=== PATIENT | male | born 1940 | race Caucasian/White ===

== ENCOUNTER 2019-02-01 16:03 | Emergency (ER) | payer MEDICARE, OTHER ==
[~2019-02-01] VITALS: Ht 180.3 cm; Wt 81.6 kg
--- NOTE | 2019-02-01 16:21 | ED Trauma-Multisystem ---
General Chief Complaint: Trauma-Non Activation Stated Complaint: UNDER LEFT EYE LAC Source of Information: Patient, Family Exam Limitations: Other (memory impairment) History of Present Illness Date Seen by Provider: February 01, 2019 Time Seen by Provider: 16:16 Initial Comments Patient is a 78-year-old male involved in located injury presents with head injury, facial injury, loss of consciousness with persistent memory loss, neck pain, left shoulder pain, left arm numbness left shoulder injury chest wall injury after being struck by a cattle gate. Injury was unwitnessed. Unknown duration of loss of consciousness. Patient was found by family members down in the mud and may have been stomped on by cow. Arrives by private vehicle. Patient is not on anticoagulation therapy. Occurred: Just Prior to Arrival Pain/Injury Location: Back, Chest, Face, Head, Upper Extremity Method of Injury: Direct Blow, Fall Modifying Factors: Immobilization Loss of Consciousness: Brief (Seconds), Dazed Associated Symptoms (Fall): Chest Pain, Dizziness, Neck Pain, Trouble Walking Allergies and Home Medications Allergies Coded Allergies: lovastatin (Verified Allergy, Unknown, 02/01/19) simvastatin (Verified Allergy, Unknown, 02/01/19) Patient Home Medication List Home Medication List Reviewed: Yes Review of Systems Review of Systems Constitutional: see HPI Eyes: See HPI Ears: See HPI Mouth: See HPI Respiratory: see HPI Cardiovascular: See HPI Genitourinary: see HPI Musculoskeletal: see HPI Past Mzpvkra-Janjiw-Yhofev Hx Past Med/Social Hx: Reviewed Nursing Past Med/Soc Hx Patient Social History Recent Foreign Travel: No ( ) Contact w/Someone Who Travel: No Physical Exam Vital Signs Vital Signs - First Documented 02/01/19 16:05 Temp 98.1 Pulse 63 Resp 18 B/P (MAP) 164/75 (104) Pulse Ox 97 O2 Delivery Room Air Height, Weight, BMI Height: '" Weight: lbs. oz. kg; BMI Method: General Appearance: WD/WN, Mild Distress (secondary to pain) Eyes: Left Eye Normal Inspection, Left Eye PERRL, Left Eye EOMI Ears, Nose, Throat: No Evidence of ENT Injury, Other (full-thickness left cheek laceration mid left orbit) Neck: Supple, Other (cervical spine multiplies, diffuse left-sided neck pain) Cardiovascular: Regular Rate, Rhythm, No Edema, Other (left anterior chest wall /shoulder pain, tenderness) Respiratory: Lungs Clear, Other (no splinting, bony crepitus or subcutaneous emphysema) Gastrointestinal: Normal Bowel Sounds, Tenderness (left upper quadrant pain tenderness.) Back: Normal Inspection, No Vertebral Tenderness Extremity: Normal Capillary Refill Neurologic/Psychiatric: Alert, Oriented x3, 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; No Motor Weakness; Sensory Deficit (decreased sensation left upper extremity.) Skin: Normal Color Heppner Coma Score Best Eye Response (Heppner): (4) Open Spontaneously Best Verbal Response (Ad): (5) Oriented Best Motor Response (Ad): (6) Obeys Commands Heppner Total: 15 Progress/Results/Core Measures Results/Orders Lab Results Laboratory Tests Test 02/01/19 16:14 Range/Units White Blood Count 8.8 4.3-11.0 10^3/uL Red Blood Count 4.62 4.35-5.85 10^6/uL Hemoglobin 14.4 13.3-17.7 G/DL Hematocrit 42 40-54 % Mean Corpuscular Volume 91 80-99 FL Mean Corpuscular Hemoglobin 31 25-34 PG Mean Corpuscular Hemoglobin Concent 34 32-36 G/DL Red Cell Distribution Width 13.1 10.0-14.5 % Platelet Count 185 130-400 10^3/uL Mean Platelet Volume 9.8 7.4-10.4 FL Neutrophils (%) (Auto) 64 42-75 % Lymphocytes (%) (Auto) 26 12-44 % Monocytes (%) (Auto) 7 0-12 % Eosinophils (%) (Auto) 3 0-10 % Basophils (%) (Auto) 0 0-10 % Neutrophils # (Auto) 5.6 1.8-7.8 X 10^3 Lymphocytes # (Auto) 2.3 1.0-4.0 X 10^3 Monocytes # (Auto) 0.6 0.0-1.0 X 10^3 Eosinophils # (Auto) 0.2 0.0-0.3 10^3/uL Basophils # (Auto) 0.0 0.0-0.1 10^3/uL Sodium Level 141 135-145 MMOL/L Potassium Level 4.0 3.6-5.0 MMOL/L Chloride Level 105 98-107 MMOL/L Carbon Dioxide Level 25 21-32 MMOL/L Anion Gap 11 5-14 MMOL/L Blood Urea Nitrogen 18 7-18 MG/DL Creatinine 0.95 0.60-1.30 MG/DL Estimat Glomerular Filtration Rate > 60 BUN/Creatinine Ratio 19 Glucose Level 126 H 70-105 MG/DL Calcium Level 9.2 8.5-10.1 MG/DL Corrected Calcium 9.1 8.5-10.1 MG/DL Total Bilirubin 0.4 0.1-1.0 MG/DL Aspartate Amino Transf (AST/SGOT) 23 5-34 U/L Alanine Aminotransferase (ALT/SGPT) 24 0-55 U/L Alkaline Phosphatase 73 40-136 U/L Troponin T 7 <=15 NG/L Total Protein 7.0 6.4-8.2 GM/DL Albumin 4.1 3.2-4.5 GM/DL Lipase 57 8-78 U/L My Orders Orders - NIKKI MORALES DO Cbc With Automated Diff (02/01/19 16:08) Comprehensive Metabolic Panel (02/01/19 16:08) Troponin T (02/01/19 16:08) Protime With Inr (02/01/19 16:08) Cbc And Manual Diff (02/01/19 16:08) Lipase (02/01/19 16:10) Ua Culture If Indicated (02/01/19 16:10) Chest 1 View Ap/Pa Only (02/01/19 16:12) Morphine Injection (Morphine Injection (02/01/19 16:22) Ondansetron Injection (Zofran Injectio (02/01/19 16:30) Cefazolin Injection (Ancef Injection) (02/01/19 16:30) Ns Iv 1000 Ml (Sodium Chloride 0.9%) (02/01/19 16:30) Dipht,Pertuss(Acell),Tet Adult (Boostrix (02/01/19 16:30) Ct Head/Cervical Spine Wo (02/01/19 16:08) Morphine Injection (Morphine Injection (02/01/19 16:56) Medications Given in ED Current Medications Medications Dose Ordered Sig/Katherine Route Start Time Stop Time Status Last Admin Dose Admin Cefazolin Sodium 1000 mg/Sterile Water 10 ml @ 200 mls/hr ONCE ONCE IV 02/01/19 16:30 02/01/19 16:32 DC 02/01/19 16:34 200 MLS/HR Diphtheria/ Tetanus/Acell Pertussis 0.5 ml ONCE ONCE IM 02/01/19 16:30 02/01/19 16:31 DC 02/01/19 16:54 0.5 ML Ondansetron HCl 4 mg ONCE ONCE IVP 02/01/19 16:30 02/01/19 16:31 DC 02/01/19 16:31 4 MG Vital Signs/I&O 02/01/19 16:05 Temp 98.1 Pulse 63 Resp 18 B/P (MAP) 164/75 (104) Pulse Ox 97 O2 Delivery Room Air Departure Communication (Admissions) Vital signs stable, chest x-ray negative. IV established. CT head intracranial hemorrhage. Dr. Pedraza at [facility] excepts as level 2 trauma activation to their ED. Requests immediate transfer without delay of obtaining additional images are ED workup. Impression Primary Impression: Multisystem blunt trauma Disposition: XFER SHT-TRM HOSP Condition: Stable Transfer Method of Transfer: EMS Departure-Patient Inst. Referrals: NO,LOCAL PHYSICIAN (PCP) Primary Care Physician NIKKI MORALES DO February 01, 2019 16:21
[2019-02-01] MEDS ORDERED: morphine INJ 10 MG/ML 1ML (SYR OR VIAL) IVP STA ×2 (16:22→16:56)
[2019-02-01] MEDS ORDERED: ONDANSETRON 4 MG/2 ML (SDV) Z0FRAN IVP ONE (16:30)
[2019-02-01] MEDS ORDERED: ceFAZolin INJECTION 1,000 MG in WATER (STERILE) FOR INJECTION 10 ML IV ONE (16:30)
[2019-02-01] MEDS ORDERED: TETANUS,DIPTH,PERTUSS P/F (BOOSTRIX) 0.5 ML VIAL IM ONE (16:30)
[2019-02-01] MEDS ORDERED: NS IV 1000 ML 1,000 ML IV SCH (16:30)
[2019-02-01 16:32] LABS: HEMATOCRIT 42 % (40-54); HEMOGLOBIN 14.4 G/DL (13.3-17.7); MEAN CORPUSCULAR HEMOGLOBIN 31 PG (25-34); MEAN CORPUSCULAR HGB CONC 34 G/DL (32-36); MEAN CORPUSCULAR VOLUME 91 FL (80-99); PLATELET COUNT 185 10^3/uL (130-400); RED CELL DISTRIBUTION WIDTH 13.1 % (10.0-14.5); WHITE BLOOD COUNT 8.8 10^3/uL (4.3-11.0)
[2019-02-01 16:33] LABS: BASOPHILS % (AUTO) 0 % (0-10); EOSINOPHILS # (AUTO) 0.2 10^3/uL (0.0-0.3); EOSINOPHILS % (AUTO) 3 % (0-10); LYMPHOCYTES # (AUTO) 2.3 X 10^3 (1.0-4.0); LYMPHOCYTES % (AUTO) 26 % (12-44); MEAN PLATELET VOLUME 9.8 FL (7.4-10.4); MONOCYTES # (AUTO) 0.6 X 10^3 (0.0-1.0); MONOCYTES % (AUTO) 7 % (0-12); NEUTROPHILS # (AUTO) 5.6 X 10^3 (1.8-7.8); NEUTROPHILS % (AUTO) 64 % (42-75)
--- NOTE | 2019-02-01 16:51 | Diagnostic Imaging Report ---
INDICATION: Trauma, hit by cow. EXAMINATION: Single view of the chest was obtained. FINDINGS: No chest wall fracture deformity. No lung contusion, pneumothorax or hemothorax. No free air beneath the diaphragm. IMPRESSION: No acute or posttraumatic sequelae radiographically apparent. Dictated by: Dictated on workstation # [id number]
[2019-02-01 17:02] LABS: CARBON DIOXIDE 25 MMOL/L (21-32); CHLORIDE 105 MMOL/L (98-107); SODIUM 141 MMOL/L (135-145)
[2019-02-01 17:03] LABS: ALANINE AMINOTRANSFERASE 24 U/L (0-55); ALKALINE PHOSPHATASE 73 U/L (40-136); BILIRUBIN,TOTAL 0.4 MG/DL (0.1-1.0); BUN/CREATININE RATIO 19; CALCIUM 9.2 MG/DL (8.5-10.1); CREATININE SERUM 0.95 MG/DL (0.60-1.30); GFR ESTIMATED > 60; GLUCOSE 126 MG/DL (70-105)
[2019-02-01 17:04] LABS: ALBUMIN 4.1 GM/DL (3.2-4.5); LIPASE 57 U/L (8-78)
[2019-02-01 17:05] VITALS: BP 162/89
--- NOTE | 2019-02-01 17:05 | Diagnostic Imaging Report ---
PROCEDURE: CT head and CT cervical spine without contrast. TECHNIQUE: Multiple contiguous axial images were obtained through the brain and cervical spine without the use of intravenous contrast. Sagittal and coronal reformations through the cervical spine were then performed. Auto Exposure Controls were utilized during the CT exam to meet ALARA standards for radiation dose reduction. INDICATION: Trauma, hit by cow. COMPARISON: None available. FINDINGS: CT head: No hyperdense hemorrhage or space-occupying mass. No hydrocephalus or midline shift. Arguello-white matter differentiation is preserved. No acute skull fracture. Age-appropriate global atrophy. Mild mucosal thickening in the ethmoid air cells. Prior partial ethmoidectomies and uncinectomies are noted. CT cervical spine: No fracture or traumatic malalignment. Multilevel degenerative disc disease and facet osteoarthritis. Heterogeneous nodular thyroid. Lung apices are clear. IMPRESSION: 1. No acute intracranial process or skull fracture. 2. No acute fracture or traumatic malalignment in the cervical spine. Dictated by: Dictated on workstation # [id number]
[2019-02-01 19:00] LABS: PROTHROMBIN TIME PATIENT 13.3 SEC (12.2-14.7)
== END 2019-02-01 17:05 | disposition short-term general hospital (02) ==
LOC: EDUNIT# 16:03 → ER FS 16:05
DX: S01.112A Laceration without foreign body of left eyelid and periocular area, initial encounter (principal); S01.412A Laceration without foreign body of left cheek and temporomandibular area, initial encounter; M25.512 Pain in left shoulder; R07.89 Other chest pain; R10.11 Right upper quadrant pain; R40.2142 Coma scale, eyes open, spontaneous, at arrival to emergency department; R40.2252 Coma scale, best verbal response, oriented, at arrival to emergency department; R40.2362 Coma scale, best motor response, obeys commands, at arrival to emergency department; Z23 Encounter for immunization; Z88.8 Allergy status to other drugs, medicaments and biological substances; W22.09XA Striking against other stationary object, initial encounter
CPT/HCPCS: 36415; 70450; 71045; 72125; 80053; 83690; 84484; 85007; 85025; 85027; 85610; 90715

== ENCOUNTER 2020-05-08 02:18 | Emergency (ER) | payer BC ==
[~2020-05-08] VITALS: Ht 175.3 cm; Wt 79.5 kg
--- OUTSIDE RECORDS SUMMARY | 2020-05-08 02:24 | XMS REPORT | Continuity of Care Document ---
Author Organization Unknown Address Unknown Phone Unavailable Allergies Active Description Code Type Severity Reaction Onset Reported/Identified Relationship to Patient Clinical Status Yes lovastatin [id number] Drug Allerg y Unknown N/A 02/01/2019 Yes simvastatin [id number] Drug Aller gy Unknown N/A 02/01/2019 Medications There is no data. Problems Date Dx Coded Attending Type Code Diagnosis Diagnosed By 02/01/2019 NIKKI MORALES DO, Ot M25.512 PAIN IN LEFT SHOULDER 02/01/2019 NIKKI MORALES DO, Ot R07.89 OTHER CHEST PAIN 02/01/2019 MORALES NIKKI BAUMAN Ot R10.11 RIGHT UPPER QUADRANT PAIN 02/01/2019 NIKKI MORALES DO, Ot R40.2142 COMA SCALE, EYES OPEN, SPONTANEOUS, EMR 02/01/2019 NIKKI MORALES DO, Ot R40.2252 COMA SCALE, BEST VERBAL RESPONSE, ORIENT 02/01/2019 NIKKI MORALES DO, Ot R40.2362 COMA SCALE, BEST MOTOR RESPONSE, OBEYS C 02/01/2019 NIKKI MORALES DO, Ot S01.112A LACERATION W/O FB OF LEFT EYELID AND PER 02/01/2019 NIKKI MORALES DO, Ot S01.412A LACERATION W/O FOREIGN BODY OF LEFT JOANIE 02/01/2019 NIKKI MORALES DO, Ot W22.09XA STRIKING AGAINST OTHER STATIONARY OBJECT 02/01/2019 NIKKI MORALES DO Ot Z23 ENCOUNTER FOR IMMUNIZATION 02/01/2019 NIKKI MORALES DO, Ot Z88.8 ALLERGY STATUS TO OT DRUG/MEDS/BIOL SUB 02/05/2019 NIKKI MORALES DO, Ot M25.512 PAIN IN LEFT SHOULDER 02/05/2019 NIKKI MORALES DO, Ot R07.89 OTHER CHEST PAIN 02/05/2019 NIKKI MORALES DO, Ot R10.11 RIGHT UPPER QUADRANT PAIN 02/05/2019 NIKKI MORALES DO, Ot R40.2142 COMA SCALE, EYES OPEN, SPONTANEOUS, EMR 02/05/2019 NIKKI MORALES DO, Ot R40.2252 COMA SCALE, BEST VERBAL RESPONSE, ORIENT 02/05/2019 NIKKI MORALES DO, Ot R40.2362 COMA SCALE, BEST MOTOR RESPONSE, OBEYS C 02/05/2019 ANDREW BAUMAN, NIKKI Ot S01.112A LACERATION W/O FB OF LEFT EYELID AND PER 02/05/2019 ANDREW BAUMAN, NIKKI Ot S01.412A LACERATION W/O FOREIGN BODY OF LEFT JOANIE 02/05/2019 MORALES , NIKKI Bartholomew W22.09XA STRIKING AGAINST OTHER STATIONARY OBJECT 02/05/2019 ANDREW BAUMAN, NIKKI Ot Z23 ENCOUNTER FOR IMMUNIZATION 02/05/2019 ANDREW BAUMAN, NIKKI Ot Z88.8 ALLERGY STATUS TO [facility] DRUG/MEDS/BIOL SUB Procedures There is no data. Results Test Result Range Complete blood count (CBC) with automate d white blood cell (WBC) differential - 02/01/19 16:14 Blood leukocytes automated count (number/volume) 8.8 10*3/uL 4.3-11.0 Blood erythrocytes automated count (number/volume) 4.62 10*6/uL 4.35-5.85 Venous blood hemoglobin measurement (mass/volume) 14.4 g/dL 13.3-17.7 Blood hematocrit (volume fraction) 42 % 40-54 Automated erythrocyte mean corpuscular volume 91 [ foz_us] 80-99 Automated erythrocyte mean corpuscular h emoglobin (mass per erythrocyte) 31 pg 25-34 Automated erythrocyte mean corpuscular h emoglobin concentration measurement (mass/volume) 34 g/dL 32-36 Automated erythrocyte distribution width ratio 13. 1 % 10.0- 14.5 Automated blood platelet count (count/volume) 185 10*3/uL 130-400 Automated blood platelet mean volume measurement 9.8 [foz_us] 7.4-10.4 Automated blood neutrophils/100 leukocytes 64 % 42-75 Automated blood lymphocytes/100 leukocytes 26 % 12-44 Blood monocytes/100 leukocytes 7 % 0-12 Automated blood eosinophils/100 leukocytes 3 % 0-10 Automated blood basophils/100 leukocytes 0 % 0-10 Blood neutrophils automated count (number/volume) 5.6 10*3 1.8-7.8 Blood lymphocytes automated count (number/volume) 2.3 10*3 1.0-4.0 Blood monocytes automated count (number/volume) 0. 6 10*3 0.0-1.0 Automated eosinophil count 0.2 10*3/uL 0 .0-0.3 Automated blood basophil count (count/volume) 0.0 10*3/uL 0.0-0.1 Comprehensive metabolic panel - 02/01/19 16:14 Serum or plasma sodium measurement (moles/volume) 141 mmol/L 135-145 Serum or plasma potassium measurement (moles/volume) 4.0 mmol/L 3.6-5.0 Serum or plasma chloride measurement (moles/volume) 105 mmol/L 98-107 Carbon dioxide 25 mmol/L 21-32 Serum or plasma anion gap determination (moles/volume) 11 mmol/L 5-14 Serum or plasma urea nitrogen measurement (mass/volume ) 18 mg/dL 7-18 Serum or plasma creatinine measurement (mass/volume) 0.95 mg/dL 0.60-1.30 Serum or plasma urea nitrogen/creatinine mass ratio 19 NRG Serum or plasma creatinine measurement w ith calculation of estimated glomerular filtration rate > NRG Serum or plasma glucose measurement (mass/volume) 126 mg/dL 70-105 Serum or plasma calcium measurement (mass/volume) 9.2 mg/dL 8.5-10.1 Serum or plasma total bilirubin measurement (mass/volu me) 0.4 mg/dL 0.1-1.0 Serum or plasma alkaline phosphatase naman surement (enzymatic activity/volume) 73 U/L 40-136 Serum or plasma aspartate aminotransfera se measurement (enzymatic activity/volume) 23 U/L 5-34 Serum or plasma alanine aminotransferase measurement (enzymatic activity/volume) 24 U/L 0-55 Serum or plasma protein measurement (mass/volume) 7.0 g/dL 6.4-8.2 Serum or plasma albumin measurement (mass/volume) 4.1 g/dL 3.2-4.5 CALCIUM CORRECTED 9.1 mg/dL 8.5-10.1 TROPONIN T - 02/01/19 16:14 TROPONIN T 7 % <=15 Lipase - 02/01/19 16:14 Lipase 57 U/L 8-78 PT panel in platelet poor plasma by coag ulation assay - 02/01/19 16:14 Prothrombin time (PT) in platelet poor plasma by coagu lation assay 13.3 s 12.2-14.7 INR in platelet poor plasma or blood by coagulation as say 1.0 0.8-1.4 Encounters ACCT No. Visit Date/Time Discharge Status Pt. Type Provider Facility Loc./Unit Complaint [id number] 02/01/2019 16:05:00 019 17:05:00 DIS NIKKI Carreno DO [facility] ER FS UNDER LEFT EYE LAC
[2020-05-08] MEDS ORDERED: ASPIRIN 81 MG CHEW (CHILDREN'S ASA) PO ONE (02:45)
--- NOTE | 2020-05-08 02:48 | ED General ---
General Chief Complaint: Trauma-Non Activation Stated Complaint: ELEV BP, CHEST PAIN History of Present Illness Date Seen by Provider: May 08, 2020 Time Seen by Provider: 02:43 Initial Comments Patient presenting to emergency department for evaluation of hypertension and chest pain. Patient says that he worked outside yesterday morning for most of the morning and then he felt poorly in the afternoon with generalized malaise and fatigue that at approximately 5 PM he had chest pressure in his left lateral chest. He said he was at rest when the chest pain started and he denied any radiation diaphoresis nausea vomiting or shortness of breath. The pain persisted through most of the evening and he took some Jennifer-Sharps around midnight and his chest pain resolved during the time he had the chest pain from 5 PM until midnight he checked his blood pressure multiple times and ranged any where from 160 systolic to 170 systolic over 80s diastolic to 100 diastolic. He takes this 50 mg of low certain and he called his doctor and they said to take an additional 25 mg of losartan and currently his blood pressure is 151/75 while I'm in the room. He says he has a history of hypertension high cholesterol and he has had a stress test and a heart catheterization in the past but there is no blockages and he has no stents. He has signs of a Q-wave in inferior leads as well as a right bundle-branch block and I asked him what his prior EKGs look like he said they were completely normal. He says his primary care provider and air transportation provider are located in [place]. Allergies and Home Medications Allergies Coded Allergies: lovastatin (Verified Allergy, Unknown, 02/01/19) simvastatin (Verified Allergy, Unknown, 02/01/19) Patient Home Medication List Home Medication List Reviewed: Yes Review of Systems Review of Systems Constitutional: malaise EENTM: no symptoms reported Respiratory: no symptoms reported Cardiovascular: chest pain Gastrointestinal: no symptoms reported Genitourinary: no symptoms reported Musculoskeletal: no symptoms reported Skin: no symptoms reported Psychiatric/Neurological: No Symptoms Reported All Other Systems Reviewed Negative Unless Noted: Yes Past Dfihqkb-Sseyqc-Fwrbid Hx Patient Social History Alcohol Use: Denies Use Recreational Drug Use: No Type Used: Smokeless Tobacco 2nd Hand Smoke Exposure: No Recent Foreign Travel: No Contact w/Someone Who Travel: No Recent Hopitalizations: No Physical Abuse: No Sexual Abuse: No Mistreated: No Fear: No Immunizations Up To Date Tetanus Booster (TDap): Unknown Date of Pneumonia Vaccine: Mar 06, 2018 Seasonal Allergies Seasonal Allergies: No Past Medical History Surgeries: Yes (colonoscopy, Left rotator cuff repair) Respiratory: No Cardiac: Yes High Cholesterol, Hypertension Neurological: No Genitourinary: Yes Benign Prostatic Hyperpl Gastrointestinal: No Musculoskeletal: No Endocrine: No HEENT: No Cancer: No Psychosocial: No Integumentary: No Blood Disorders: No Physical Exam Vital Signs Vital Signs - First Documented 05/08/20 02:31 Temp 36.8 Pulse 61 Resp 10 B/P (MAP) 165/89 (114) Pulse Ox 98 O2 Delivery Room Air Capillary Refill : Height, Weight, BMI Height: 5'11.00" Weight: 180lbs. oz. 81.042159xw; BMI Method:Stated General Appearance: No Apparent Distress, WD/WN HEENT: PERRL/EOMI Neck: Supple Respiratory: Lungs Clear, No Respiratory Distress Cardiovascular: No Edema, Normal Peripheral Pulses Gastrointestinal: Soft Back: Normal Inspection Extremity: Normal Capillary Refill Neurologic/Psychiatric: Alert, Oriented x3 Skin: Warm/Dry Progress/Results/Core Measures Suspected Sepsis SIRS Temperature: Pulse: Respiratory Rate: Laboratory Tests 05/08/20 02:30: White Blood Count 8.5 Blood Pressure / Mean: Laboratory Tests 05/08/20 02:30: Creatinine 0.99, INR Comment 1.0, Platelet Count 185, Total Bilirubin 0.7 Results/Orders Lab Results Laboratory Tests Test 05/08/20 02:30 Range/Units White Blood Count 8.5 4.3-11.0 10^3/uL Red Blood Count 4.69 4.35-5.85 10^6/uL Hemoglobin 14.5 13.3-17.7 G/DL Hematocrit 42 40-54 % Mean Corpuscular Volume 90 80-99 FL Mean Corpuscular Hemoglobin 31 25-34 PG Mean Corpuscular Hemoglobin Concent 34 32-36 G/DL Red Cell Distribution Width 12.8 10.0-14.5 % Platelet Count 185 130-400 10^3/uL Mean Platelet Volume 9.6 7.4-10.4 FL Neutrophils (%) (Auto) 56 42-75 % Lymphocytes (%) (Auto) 31 12-44 % Monocytes (%) (Auto) 9 0-12 % Eosinophils (%) (Auto) 4 0-10 % Basophils (%) (Auto) 1 0-10 % Neutrophils # (Auto) 4.7 1.8-7.8 X 10^3 Lymphocytes # (Auto) 2.7 1.0-4.0 X 10^3 Monocytes # (Auto) 0.7 0.0-1.0 X 10^3 Eosinophils # (Auto) 0.3 0.0-0.3 10^3/uL Basophils # (Auto) 0.0 0.0-0.1 10^3/uL Prothrombin Time 13.1 12.2-14.7 SEC INR Comment 1.0 0.8-1.4 Activated Partial Thromboplast Time 30 24-35 SEC D-Dimer 0.35 0.00-0.49 UG/ML Sodium Level 139 135-145 MMOL/L Potassium Level 4.0 3.6-5.0 MMOL/L Chloride Level 104 98-107 MMOL/L Carbon Dioxide Level 24 21-32 MMOL/L Anion Gap 11 5-14 MMOL/L Blood Urea Nitrogen 18 7-18 MG/DL Creatinine 0.99 0.60-1.30 MG/DL Estimat Glomerular Filtration Rate > 60 BUN/Creatinine Ratio 18 Glucose Level 94 70-105 MG/DL Calcium Level 9.5 8.5-10.1 MG/DL Corrected Calcium 9.3 8.5-10.1 MG/DL Magnesium Level 2.2 1.6-2.4 MG/DL Total Bilirubin 0.7 0.1-1.0 MG/DL Aspartate Amino Transf (AST/SGOT) 26 5-34 U/L Alanine Aminotransferase (ALT/SGPT) 33 0-55 U/L Alkaline Phosphatase 79 40-136 U/L Troponin I < 0.30 <0.30 NG/ML Pro-B-Type Natriuretic Peptide 148.3 H <75.0 PG/ML Total Protein 6.7 6.4-8.2 GM/DL Albumin 4.2 3.2-4.5 GM/DL Lipase 90 H 8-78 U/L My Orders Orders - SMOOTH LMEON DO Cbc With Automated Diff (05/08/20 02:43) Comprehensive Metabolic Panel (05/08/20 02:43) Iv/Invasive Line Insertion .IV start (05/08/20 02:43) Chest 1 View Ap/Pa Only (05/08/20 02:43) Lipase (05/08/20 02:43) Magnesium (05/08/20 02:43) Partial Thromboplastin Time (05/08/20 02:43) Probnp Fs (05/08/20 02:43) Protime With Inr (05/08/20 02:43) Fibrin Degradation Products (05/08/20 02:43) Troponin I Fs (05/08/20 02:43) Aspirin Chewable Tablet (Baby Aspirin Ch (05/08/20 02:45) Medications Given in ED Current Medications Medications Dose Ordered Sig/Katherine Route Start Time Stop Time Status Last Admin Dose Admin Aspirin 324 mg ONCE ONCE PO 05/08/20 02:45 05/08/20 02:59 DC 05/08/20 02:50 324 MG Vital Signs/I&O 05/08/20 02:31 Temp 36.8 Pulse 61 Resp 10 B/P (MAP) 165/89 (114) Pulse Ox 98 O2 Delivery Room Air Capillary Refill : Progress Note : Progress Note Patient has an abnormal EKG which he says his pressures have all been normal but I have nothing to compare to. I discussed him being transferred to the nearest cardiac facility which would be [place] for further cardiac evaluation as his heart score is equal to 5 based off his age and risk factors putting him in the high risk category. Patient's testing came back negative with a normal troponin more than 6 hours out from onset of symptoms. Patient has been asymptomatic here and his blood pressure has been normal. He said he does not want to be transferred to [place] as he wants to be discharged and he will follow up with his primary care provider and air transportation provider in [place]. I advised against this as the testing here is not definitive and given his elevated risk factors he should be more promptly evaluated. I explained why I wanted to do this including decreasing the chance of and disability and he verbalized understanding. Patient accepted the risks of and disability by not having a full cardiac evaluation but said he will follow up on his own. Patient will be discharged in stable condition at this time with planning for him to get his own follow-up and he was told to come back to emergency department any time with any new worsening symptoms. Patient aware and agreeable with plan and verbalized understanding of the above instructions. Departure Impression Primary Impression: Chest pain Qualified Codes: R07.9 - Chest pain, unspecified Disposition: 01 HOME, SELF-CARE Condition: Stable Departure-Patient Inst. Referrals: NO,LOCAL PHYSICIAN (PCP/Family) Primary Care Physician SMOOTH LEMON DO May 08, 2020 02:48
[2020-05-08 02:56] LABS: BASOPHILS % (AUTO) 1 % (0-10); EOSINOPHILS % (AUTO) 4 % (0-10); HEMATOCRIT 42 % (40-54); HEMOGLOBIN 14.5 G/DL (13.3-17.7); LYMPHOCYTES # (AUTO) 2.7 X 10^3 (1.0-4.0); LYMPHOCYTES % (AUTO) 31 % (12-44); MEAN CORPUSCULAR HEMOGLOBIN 31 PG (25-34); MEAN CORPUSCULAR HGB CONC 34 G/DL (32-36); MEAN CORPUSCULAR VOLUME 90 FL (80-99); MEAN PLATELET VOLUME 9.6 FL (7.4-10.4); MONOCYTES % (AUTO) 9 % (0-12); NEUTROPHILS # (AUTO) 4.7 X 10^3 (1.8-7.8); NEUTROPHILS % (AUTO) 56 % (42-75); PLATELET COUNT 185 10^3/uL (130-400); RED CELL DISTRIBUTION WIDTH 12.8 % (10.0-14.5); WHITE BLOOD COUNT 8.5 10^3/uL (4.3-11.0)
[2020-05-08 02:57] LABS: EOSINOPHILS # (AUTO) 0.3 10^3/uL (0.0-0.3); MONOCYTES # (AUTO) 0.7 X 10^3 (0.0-1.0)
[2020-05-08 03:14] LABS: SODIUM 139 MMOL/L (135-145)
[2020-05-08 03:15] LABS: ALANINE AMINOTRANSFERASE 33 U/L (0-55); ALBUMIN 4.2 GM/DL (3.2-4.5); ALKALINE PHOSPHATASE 79 U/L (40-136); BILIRUBIN,TOTAL 0.7 MG/DL (0.1-1.0); BUN/CREATININE RATIO 18; CALCIUM 9.5 MG/DL (8.5-10.1); CARBON DIOXIDE 24 MMOL/L (21-32); CHLORIDE 104 MMOL/L (98-107); CREATININE SERUM 0.99 MG/DL (0.60-1.30); GFR ESTIMATED > 60; GLUCOSE 94 MG/DL (70-105); MAGNESIUM 2.2 MG/DL (1.6-2.4); TOTAL PROTEIN 6.7 GM/DL (6.4-8.2)
[2020-05-08 03:22] LABS: FIBRIN DEGRADATION PRODUCTS 0.35 UG/ML (0.00-0.49); PROTHROMBIN TIME PATIENT 13.1 SEC (12.2-14.7)
[2020-05-08 03:23] LABS: LIPASE 90 U/L (8-78)
[2020-05-08 03:32] VITALS: BP 147/75
--- NOTE | 2020-05-08 07:55 | Diagnostic Imaging Report ---
Indication: Chest pain Portable chest 2:46 AM Heart size and pulmonary vascularity are normal. Lungs are clear. There are no effusions or pneumothoraces. IMPRESSION: Negative chest Dictated by: Dictated on workstation # [id number]
== END 2020-05-08 03:32 | disposition home or self-care (01) ==
LOC: EDUNIT# 02:18 → ER FS 02:20
DX: R07.89 Other chest pain (principal); R07.9 Chest pain, unspecified; I10 Essential (primary) hypertension; E78.00 Pure hypercholesterolemia, unspecified
CPT/HCPCS: 36415; 71045; 80053; 83690; 83735; 83880; 84484; 85025; 85379; 85610; 85730; 93005